=== PATIENT | male | born 1995 | race Caucasian/White ===

== ENCOUNTER 2020-08-30 13:35 | Outpatient (REF) | payer MEDICARE, MEDICAID, SELFPAY ==
--- NOTE | 2020-08-31 11:13 | MHC.AU.P13 ---
Adult Audiological Evaluation Date of Visit: 08/30/20 Reason for Appointment: Annual audiological evaluation, per protocol of his residential program. Patient has a history of bacterial meningitis when he was 6 months old. He has previously seen Ear, Nose, and Throat for an abscess in his right ear. Has hearing been tested previously?: Yes Previous Hearing Test Results: 07/29/2019 at this clinic- Normal hearing bilaterally Ear History: Recent Ear Pain: None Reported Previous Ear Surgery: Right Ear Medical History: Medical History: Bacterial Spinal Meningitis at 6 months old, Autism Spectrum Disorder, Intellectual Disability Otoscopy: Right Ear: Unremarkable Left Ear: Unremarkable Tympanometry: Right Ear: Normal Middle Ear System (Type A) Left Ear: Normal Middle Ear System (Type A) Hearing Evaluation: Transducer(s) Used: Insert Earphones Method: Conventional Audiometry Stimuli Used: Pure Tones Right Ear: Description of Hearing: Normal hearing Left Ear: Description of Hearing: Normal hearing Speech Recognition Threshold (SRT): Method Used: Recorded Lists Stimuli Used: Spondee Words Right Ear: 10 dBHL Left Ear: 10 dBHL Word Discrimination: Method: Recorded Lists Word Lists Used: NU-6 Right Ear: 100% at 50 dBHL Left Ear: 100% at 50 dBHL Comparison: Compared to the most recent evaluation: Hearing is stable. Recommendations: Audiological re-evaluation in one year. Diagnosis: Primary Diagnosis: H93.293 Abnormal Auditory Perception Services Performed: Services Performed: Comprehensive Audiological Evaluation (CPT 08380), Tympanometry (CPT 70035) Signature: Provider: Emily Linares, [facility]
== END 2020-08-30 13:36 | disposition home or self-care (01) ==
LOC: HO.SH 13:35
PROVIDERS: Visit Provider Internal Medicine
DX: H93.293 Other abnormal auditory perceptions, bilateral (principal)
CPT/HCPCS: 92557; 92567

== ENCOUNTER 2021-09-17 13:04 | Outpatient (REF) | payer MEDICARE, MEDICAID, SELFPAY ==
--- NOTE | 2021-09-17 14:33 | MHC.AU.ANR ---
Adult Audiological Evaluation Date of Visit: 09/17/21 Reason for Appointment: Annual audiological evaluation, per protocol of his residential program. Patient has a history of bacterial meningitis when he was 6 months old. Has seen Ear, Nose, and Throat in the past for an abscess in his right ear. Patient denies any recent changes in his ears. Has hearing been tested previously?: Yes Previous Hearing Test Results: At this clinic on 08/30/2020- Normal hearing bilaterally Ear History: Recent Ear Drainage: None Reported Recent Ear Pain: None Reported Previous Ear Surgery: Right Ear Medical History: Medical History: Bacterial Spinal Meningitis at 6 months old, Autism Spectrum Disorder, Intellectual Disability Otoscopy: Right Ear: Unremarkable Left Ear: Unremarkable Tympanometry: Tympanometry performed due to: To assess integrity of the middle ear system Right Ear: Normal Middle Ear System (Type A) Left Ear: Normal Middle Ear System (Type A) Hearing Evaluation: Transducer(s) Used: Insert Earphones Method: Conventional Audiometry Stimuli Used: Pure Tones Right Ear: Description of Hearing: Normal hearing Left Ear: Description of Hearing: Normal hearing Speech Recognition Threshold (SRT): Method Used: Monitored Live Voice Stimuli Used: Spondee Words Right Ear: 15 dBHL Left Ear: 15 dBHL Word Discrimination: Method: Recorded Lists Word Lists Used: W-22 Right Ear: 100% at 55 dBHL Left Ear: 100% at 55 dBHL Recommendations: Audiological re-evaluation in one year. Diagnosis: Primary Diagnosis: H93.293 Abnormal Auditory Perception Signature: Provider: Emily Linares, CCC-A
== END 2021-09-17 13:05 | disposition home or self-care (01) ==
LOC: HO.SH 13:04
PROVIDERS: Visit Provider Internal Medicine
DX: Z01.118 Encounter for examination of ears and hearing with other abnormal findings (principal); H93.293 Other abnormal auditory perceptions, bilateral
CPT/HCPCS: 92557; 92567

== ENCOUNTER 2023-01-20 08:23 | Outpatient (REF) | payer MEDICARE, MEDICAID, SELFPAY | END 2023-01-20 08:24 | disposition home or self-care (01) | LOC: HO.SH 08:23 | PROVIDERS: Visit Provider Internal Medicine | DX: Z01.118 Encounter for examination of ears and hearing with other abnormal findings (principal); H93.293 Other abnormal auditory perceptions, bilateral; H92.01 Otalgia, right ear | CPT/HCPCS: 92557; 92567 ==

== ENCOUNTER 2023-12-15 10:47 | Outpatient (REF) | payer MEDICARE, MEDICAID, SELFPAY | END 2023-12-15 10:48 | disposition home or self-care (01) | LOC: HO.SH 10:47 | PROVIDERS: Visit Provider Physician Assistant | DX: Z01.118 Encounter for examination of ears and hearing with other abnormal findings (principal); H93.293 Other abnormal auditory perceptions, bilateral | CPT/HCPCS: 92553; 92556; 92567 ==